=== PATIENT | male | born 1935 | race Caucasian/White ===

== ENCOUNTER 2017-04-05 11:07 | Inpatient (IN) | payer MEDICARE ==
[~2017-04-05] VITALS: Ht 180.3 cm; Wt 123.6 kg
[2017-04-05 11:50] LABS: BASOPHILS % (AUTO) 0.5 % (0.0-5.0); EOSINOPHILS % (AUTO) 0.5 % (0.0-8.0); HEMATOCRIT 42.8 % (42-54); LYMPHOCYTES % (AUTO) 6.5 % (21.0-51.0); MEAN CORPUSCULAR HEMOGLOBIN 30.8 pg (27.0-33.0); MEAN CORPUSCULAR HGB CONC 33.8 g/dL (32.0-36.0); MEAN CORPUSCULAR VOLUME 91.1 fL (79-99); MONOCYTES % (AUTO) 8.6 % (3.0-13.0); NEUTROPHILS % (AUTO) 83.9 % (40.0-77.0); PLATELET COUNT (AUTO) 183 K/uL (130-400); RED CELL DISTRIBUTION WIDTH 15.9 % (11.0-15.5); WHITE BLOOD COUNT (AUTO) 18.4 K/uL (4.8-10.8)
[2017-04-05 11:51] LABS: APPEARANCE,URINE Clear (CLEAR); BILIRUBIN,URINE Negative (NEGATIVE); COLOR,URINE Yellow (YELLOW); GLUCOSE, URINE (UA) Negative (NEGATIVE); KETONES,URINE Negative (NEGATIVE); LEUKOCYTE ESTERASE ,URINE Moderate (NEGATIVE); NITRATE,URINE Negative (NEGATIVE); OCCULT BLOOD,URINE Negative (NEGATIVE); PH,URINE 5.5 (5.0-8.0); PROTEIN,URINE Negative (NEGATIVE); UROBILINOGEN,URINE 0.2 mg/dL (0.2-1.0)
[2017-04-05 11:57] LABS: BACTERIA,URINE Rare /HPF (None Seen); SQUAMOUS EPITHELIAL CELL,UR Rare /LPF (0-2); WBC,URINE 0-1 /HPF (0-1)
[2017-04-05] MEDS ORDERED: ONDANSETRON HCL 4 MG/2 ML VIAL ONE (12:13)
[2017-04-05] MEDS ORDERED: FENTANYL CITRATE PF 50 MCG/1 ML 2ML VIAL ONE (12:14)
[2017-04-05] MEDS ORDERED: SODIUM CHLORIDE 0.9% 500ML 500 ML IV ONE (12:14)
[2017-04-05 12:21] LABS: CREATININE 1.3 mg/dL (0.5-1.5)
[2017-04-05 12:25] LABS: ALBUMIN 3.6 g/dL (3.5-5.0); BILIRUBIN,DIRECT 0.2 mg/dL (0.0-0.3)
[2017-04-05 18:35] VITALS: BP 146/77
[2017-04-05] MEDS ORDERED: ONDANSETRON HCL 4 MG/2 ML VIAL IVP PRN (18:45)
[2017-04-05] MEDS ORDERED: MORPHINE SULFATE 5 MG/ML VIAL IV PRN (18:45)
[2017-04-05] MEDS ORDERED: MORPHINE SULFATE 10 MG/ML 1ML VIAL IVP PRN (19:00)
[2017-04-05] MEDS: DEXTROSE 5 %-0.45 % NACL 1,000 ML IV SCH (19:53)
[2017-04-05] MEDS ORDERED: MORPHINE SULFATE 2 MG/ML 1ML SYG ONE (19:58)
[2017-04-05] MEDS ORDERED: HYDRALAZINE HCL 20 MG/ML VIAL IV PRN (21:15)
[2017-04-05] MEDS ORDERED: ZOLPIDEM TARTRATE 5 MG TAB PO PRN (21:15)
[2017-04-05] MEDS ORDERED: LACTULOSE 20 GM/30 ML UDCUP PO PRN (21:15)
[2017-04-05] MEDS ORDERED: ONDANSETRON HCL 4 MG/2 ML VIAL IV PRN (21:15)
[2017-04-05] MEDS ORDERED: ACETAMINOPHEN-CODEINE 300/30MG TAB PO PRN (21:15)
[2017-04-05] MEDS: MEROPENEM 1 GM VIAL IVP SCH (22:14)
[2017-04-05 23:52] VITALS: BP 137/71
[2017-04-06 04:00] VITALS: BP 125/70
[2017-04-06] MEDS ORDERED: ZOSYN 3.375GM+NS 50ML 50 ML IV SCH (05:00)
[2017-04-06 05:06] LABS: BASOPHILS % (AUTO) 0.4 % (0.0-5.0); EOSINOPHILS % (AUTO) 0.3 % (0.0-8.0); HEMATOCRIT 40.3 % (42-54); LYMPHOCYTES % (AUTO) 5.5 % (21.0-51.0); MEAN CORPUSCULAR HEMOGLOBIN 30.6 pg (27.0-33.0); MEAN CORPUSCULAR HGB CONC 33.2 g/dL (32.0-36.0); MEAN CORPUSCULAR VOLUME 92.2 fL (79-99); MONOCYTES % (AUTO) 8.5 % (3.0-13.0); NEUTROPHILS % (AUTO) 85.3 % (40.0-77.0); PLATELET COUNT (AUTO) 167 K/uL (130-400); RED BLOOD CELL COUNT(AUTO) 4.37 MIL/uL (4.50-6.20); WHITE BLOOD COUNT (AUTO) 22.6 K/uL (4.8-10.8)
[2017-04-06 05:25] LABS: ALBUMIN 2.9 g/dL (3.5-5.0); BILIRUBIN,TOTAL 1.2 mg/dL (0.2-1.0); CREATININE 1.2 mg/dL (0.5-1.5); POTASSIUM 3.8 mmol/L (3.5-5.1); TOTAL PROTEIN, SERUM 6.8 g/dL (6.0-8.3)
[2017-04-06 07:00] VITALS: BP 136/73
[2017-04-06] MEDS: FAMOTIDINE/PF 20 MG/2 ML VIAL IV SCH (09:21)
[2017-04-06] MEDS: DEXTROSE 5 %-0.45 % NACL 1,000 ML IV SCH (09:21)
[2017-04-06] MEDS: ENOXAPARIN SODIUM 40 MG/0.4 ML SYRINGE SQ SCH (09:22)
[2017-04-06] MEDS: MEROPENEM 1 GM VIAL IVP SCH ×2 (09:22→21:49)
[2017-04-06 10:05] LABS: INR 1.96 (0.85-1.15); PARTIAL THROMBOPLASTIN TIME 41.8 SEC (26.3-35.5); PROTHROMBIN TIME 20.3 SEC (9.6-11.6)
[2017-04-06 11:00] VITALS: BP 144/73
[2017-04-06] MEDS: FUROSEMIDE 10 MG/ML 2ML VIAL IV SCH (13:25)
[2017-04-06] MEDS: METOPROLOL TARTRATE 25 MG TAB PO SCH ×2 (13:25→21:49)
[2017-04-06 15:00] VITALS: BP 130/72
[2017-04-06] MEDS ORDERED: WARF5TAB76 PO (15:40)
[2017-04-06] MEDS ORDERED: SOTA80TA PO (15:40)
[2017-04-06] MEDS ORDERED: OMEP20CA10 PO (15:40)
[2017-04-06] MEDS ORDERED: TERA5CAP4 PO (15:40)
[2017-04-06] MEDS ORDERED: WARF2TAB57 PO (15:40)
[2017-04-06] MEDS ORDERED: LOSA1TAB37 PO (15:40)
[2017-04-06] MEDS ORDERED: ATOR20TA65 PO (15:40)
[2017-04-06] MEDS ORDERED: AMLO5TAB2 PO (15:40)
[2017-04-06] MEDS ORDERED: MAGN500C15 PO (15:40)
[2017-04-06] MEDS ORDERED: SPIR25TA4 PO (15:40)
[2017-04-06] MEDS ORDERED: ALLO300T2 PO (15:40)
[2017-04-06] MEDS ORDERED: CALC-866 PO (15:40)
[2017-04-06 20:00] VITALS: BP 142/80
[2017-04-07] VITALS (26 sets, daily range): BP systolic 121–160; BP diastolic 49–94
[2017-04-07] MEDS: FUROSEMIDE 10 MG/ML 2ML VIAL IV SCH ×3 (00:21→23:41)
[2017-04-07 05:59] LABS: MEAN CORPUSCULAR HEMOGLOBIN 30.5 pg (27.0-33.0); MEAN CORPUSCULAR HGB CONC 33.2 g/dL (32.0-36.0); MEAN CORPUSCULAR VOLUME 91.9 fL (79-99); PLATELET COUNT (AUTO) 189 K/uL (130-400); RED BLOOD CELL COUNT(AUTO) 4.24 MIL/uL (4.50-6.20); RED CELL DISTRIBUTION WIDTH 15.5 % (11.0-15.5); WHITE BLOOD COUNT (AUTO) 17.9 K/uL (4.8-10.8)
[2017-04-07 06:19] LABS: CREATININE 1.4 mg/dL (0.5-1.5); POTASSIUM 3.7 mmol/L (3.5-5.1)
[2017-04-07 06:25] LABS: B-TYPE NATRIURETIC PEPTIDE 76 pg/mL (0-100)
[2017-04-07 07:26] LABS: INR 1.42 (0.85-1.15); PROTHROMBIN TIME 14.8 SEC (9.6-11.6)
[2017-04-07] MEDS: ENOXAPARIN SODIUM 40 MG/0.4 ML SYRINGE SQ SCH (08:07)
[2017-04-07] MEDS: METOPROLOL TARTRATE 25 MG TAB PO SCH ×2 (08:30→20:13)
[2017-04-07] MEDS: FAMOTIDINE/PF 20 MG/2 ML VIAL IV SCH (08:30)
[2017-04-07] MEDS ORDERED: SODIUM CHLORIDE 0.9% 1000ML 0 ML IV ONE (09:15)
[2017-04-07] MEDS ORDERED: LACTATED RINGERS 1000ML 1,000 ML IV ONE (09:16)
[2017-04-07] MEDS: MEROPENEM 1 GM VIAL IVP SCH ×2 (10:11→21:53)
[2017-04-07] MEDS ORDERED: DEXAMETHASONE SOD PHOSPHATE 10MG/ML 1ML VIAL ONE (10:13)
[2017-04-07] MEDS ORDERED: ONDANSETRON HCL 4 MG/2 ML VIAL ONE (10:13)
[2017-04-07] MEDS ORDERED: PROPOFOL 10 MG/ML 20ML VIAL IV ONE (10:14)
[2017-04-07] MEDS ORDERED: MIDAZOLAM HCL 1 MG/ML 2ML VIAL ONE (10:14)
[2017-04-07] MEDS ORDERED: ROCURONIUM BROMIDE 10MG/1ML 5ML VL ONE (10:14)
[2017-04-07] MEDS ORDERED: GLYCOPYRROLATE 0.2 MG/ML 5 ML VIAL ONE (10:14)
[2017-04-07] MEDS ORDERED: LIDOCAINE PF 2% 5ML ABBOJECT ONE (10:14)
[2017-04-07] MEDS ORDERED: LIDOCAINE HCL MPF 1% 5ML VIAL ONE (10:14)
[2017-04-07] MEDS ORDERED: NEOSTIGMINE METHYLSULFATE 1MG/ML IV ONE (10:14)
[2017-04-07] MEDS ORDERED: FENTANYL CITRATE PF 50 MCG/1 ML 2ML VIAL ONE (10:15)
[2017-04-07] MEDS ORDERED: ACETAMINOPHEN-CODEINE 300/30MG TAB PO PRN (12:00)
[2017-04-07] MEDS ORDERED: IPRATROPIUM/ALBUTEROL SULFATE 3 ML SOLUTION IH ONE (12:28)
[2017-04-07] MEDS ORDERED: WARFARIN SODIUM 2 MG TAB PO SCH (17:00)
[2017-04-07] MEDS ORDERED: WARFARIN SODIUM 5 MG TAB PO SCH (17:00)
[2017-04-07] MEDS: LACTATED RINGERS 1000ML 1,000 ML IV SCH (20:14)
[2017-04-08] MEDS: ACETAMINOPHEN-CODEINE 300/30MG TAB PO PRN ×3 (02:16→22:08)
[2017-04-08 03:00] VITALS: BP 141/73
[2017-04-08 04:42] LABS: HEMATOCRIT 40.6 % (42-54); MEAN CORPUSCULAR HEMOGLOBIN 30.6 pg (27.0-33.0); MEAN CORPUSCULAR HGB CONC 33.3 g/dL (32.0-36.0); MEAN CORPUSCULAR VOLUME 91.9 fL (79-99); PLATELET COUNT (AUTO) 197 K/uL (130-400); RED BLOOD CELL COUNT(AUTO) 4.42 MIL/uL (4.50-6.20); RED CELL DISTRIBUTION WIDTH 15.5 % (11.0-15.5); WHITE BLOOD COUNT (AUTO) 14.6 K/uL (4.8-10.8)
[2017-04-08 04:48] LABS: INR 1.26 (0.85-1.15); PROTHROMBIN TIME 13.2 SEC (9.6-11.6)
[2017-04-08 04:57] LABS: ALBUMIN 2.7 g/dL (3.5-5.0); BILIRUBIN,TOTAL 0.8 mg/dL (0.2-1.0); CREATININE 1.4 mg/dL (0.5-1.5); POTASSIUM 3.6 mmol/L (3.5-5.1); TOTAL PROTEIN, SERUM 7.3 g/dL (6.0-8.3)
[2017-04-08 06:23] LABS: INR 1.27 (0.85-1.15); PROTHROMBIN TIME 13.3 SEC (9.6-11.6)
[2017-04-08 07:58] VITALS: BP 136/63
[2017-04-08] MEDS: METOPROLOL TARTRATE 25 MG TAB PO SCH (09:00)
[2017-04-08] MEDS: CHOLECALCIFEROL 5000 UNIT PO SCH (09:00)
[2017-04-08] MEDS: ENOXAPARIN SODIUM 40 MG/0.4 ML SYRINGE SQ SCH (09:00)
[2017-04-08] MEDS: ALLOPURINOL 300 MG TABLET PO SCH (10:17)
[2017-04-08] MEDS: FAMOTIDINE/PF 20 MG/2 ML VIAL IV SCH (10:17)
[2017-04-08] MEDS: LOSARTAN/HYDROCHLOROTHIAZIDE 50-12.5MG TABLET PO SCH (10:17)
[2017-04-08] MEDS: SOTALOL HCL 80 MG TABLET PO SCH ×2 (10:17→21:55)
[2017-04-08] MEDS: MEROPENEM 1 GM VIAL IVP SCH ×2 (10:18→21:56)
[2017-04-08] MEDS: FUROSEMIDE 10 MG/ML 2ML VIAL IV SCH (10:21)
[2017-04-08 11:19] VITALS: BP 120/79
[2017-04-08] MEDS: SPIRONOLACTONE 25 MG TAB PO SCH (13:58)
[2017-04-08 16:44] VITALS: BP 135/68
[2017-04-08] MEDS: WARFARIN SODIUM 5 MG TAB PO SCH (17:09)
[2017-04-08 20:00] VITALS: BP 115/63
[2017-04-08] MEDS: AMLODIPINE BESYLATE 5 MG TAB PO SCH (21:55)
[2017-04-08] MEDS: TERAZOSIN HCL 5 MG CAPSULE PO SCH (21:55)
[2017-04-08] MEDS: ATORVASTATIN CALCIUM 20 MG TABLET PO SCH (21:55)
[2017-04-08] MEDS: LACTATED RINGERS 1000ML 1,000 ML IV SCH (21:56)
[2017-04-09] VITALS: BP 143/83
[2017-04-09 04:00] VITALS: BP 105/52
[2017-04-09 05:03] LABS: HEMATOCRIT 35.7 % (42-54); MEAN CORPUSCULAR HEMOGLOBIN 31.4 pg (27.0-33.0); MEAN CORPUSCULAR HGB CONC 34.1 g/dL (32.0-36.0); MEAN CORPUSCULAR VOLUME 91.9 fL (79-99); PLATELET COUNT (AUTO) 175 K/uL (130-400); RED BLOOD CELL COUNT(AUTO) 3.88 MIL/uL (4.50-6.20); RED CELL DISTRIBUTION WIDTH 15.6 % (11.0-15.5); WHITE BLOOD COUNT (AUTO) 9.3 K/uL (4.8-10.8)
[2017-04-09 05:12] LABS: INR 1.28 (0.85-1.15); PROTHROMBIN TIME 13.4 SEC (9.6-11.6)
[2017-04-09 05:22] LABS: ALBUMIN 2.4 g/dL (3.5-5.0); BILIRUBIN,TOTAL 0.6 mg/dL (0.2-1.0); CREATININE 1.3 mg/dL (0.5-1.5); POTASSIUM 3.5 mmol/L (3.5-5.1); TOTAL PROTEIN, SERUM 6.5 g/dL (6.0-8.3)
[2017-04-09 05:51] LABS: BAND NEUTROPHILS % (MANUAL) 21 % (0-2); EOSINOPHILS % (MANUAL) 3 % (1-6); LYMPHOCYTES % (MANUAL) 25 % (22-44); MAN.DIFF COMMENT-IMPRESSION MANUAL DIFFERENTIAL; MONOCYTES % (MANUAL) 6 % (2-9); PLATELET MORPHOLOGY COMMENT ADEQUATE; SEGMENTED NEUTROPHILS % 45 % (40-70)
[2017-04-09 07:50] VITALS: BP 110/66
[2017-04-09] MEDS: CHOLECALCIFEROL 5000 UNIT PO SCH (09:00)
[2017-04-09] MEDS ORDERED: WARFARIN SODIUM 1 MG TAB PO SCH (09:45)
[2017-04-09] MEDS ORDERED: LIDOCAINE HCL-MPF 1% 2ML VIAL IVP PRN (10:00)
[2017-04-09] MEDS ORDERED: POTASSIUM CHLORIDE 20MEQ/100ML 100 ML IV PRN (10:00)
[2017-04-09] MEDS ORDERED: POTASSIUM CHLORIDE 10% ELIXIR 20 MEQ/15 ML UDCUP PO PRN (10:00)
[2017-04-09] MEDS: SOTALOL HCL 80 MG TABLET PO SCH ×2 (10:28→20:28)
[2017-04-09] MEDS: POTASSIUM CHLORIDE 20 MEQ ERTAB PO PRN ×2 (10:28→17:17)
[2017-04-09] MEDS: PANTOPRAZOLE SODIUM 40 MG TABLET.DR PO SCH (10:29)
[2017-04-09] MEDS: LOSARTAN/HYDROCHLOROTHIAZIDE 50-12.5MG TABLET PO SCH (10:29)
[2017-04-09] MEDS: MAGNESIUM OXIDE 400 MG TABLET PO SCH (10:29)
[2017-04-09] MEDS: FAMOTIDINE/PF 20 MG/2 ML VIAL IV SCH (10:29)
[2017-04-09] MEDS: ALLOPURINOL 300 MG TABLET PO SCH (10:29)
[2017-04-09] MEDS: MEROPENEM 1 GM VIAL IVP SCH ×2 (10:29→22:17)
[2017-04-09 11:13] VITALS: BP 111/83
[2017-04-09] MEDS: SPIRONOLACTONE 25 MG TAB PO SCH (15:25)
[2017-04-09] MEDS: ACETAMINOPHEN-CODEINE 300/30MG TAB PO PRN (15:28)
[2017-04-09 15:59] VITALS: BP 121/66
[2017-04-09] MEDS: WARFARIN SODIUM 5 MG TAB PO SCH (17:16)
[2017-04-09 20:25] VITALS: BP 112/72
[2017-04-09] MEDS: AMLODIPINE BESYLATE 5 MG TAB PO SCH (20:28)
[2017-04-09] MEDS: ATORVASTATIN CALCIUM 20 MG TABLET PO SCH (20:28)
[2017-04-09] MEDS: TERAZOSIN HCL 5 MG CAPSULE PO SCH (20:28)
[2017-04-09] MEDS: LACTATED RINGERS 1000ML 1,000 ML IV SCH (22:17)
[2017-04-10] VITALS: BP 124/50
[2017-04-10 04:00] VITALS: BP 120/64
[2017-04-10 05:18] LABS: INR 1.45 (0.85-1.15); PROTHROMBIN TIME 15.1 SEC (9.6-11.6)
[2017-04-10] MEDS: PANTOPRAZOLE SODIUM 40 MG TABLET.DR PO SCH (06:38)
[2017-04-10 07:30] VITALS: BP 107/62
[2017-04-10] MEDS: CHOLECALCIFEROL 5000 UNIT PO SCH (09:00)
[2017-04-10] MEDS: ALLOPURINOL 300 MG TABLET PO SCH (10:43)
[2017-04-10] MEDS: FAMOTIDINE/PF 20 MG/2 ML VIAL IV SCH (10:43)
[2017-04-10] MEDS: MAGNESIUM OXIDE 400 MG TABLET PO SCH (10:43)
[2017-04-10] MEDS: MEROPENEM 1 GM VIAL IVP SCH (10:43)
[2017-04-10] MEDS: LOSARTAN/HYDROCHLOROTHIAZIDE 50-12.5MG TABLET PO SCH (10:44)
[2017-04-10] MEDS: SOTALOL HCL 80 MG TABLET PO SCH (10:44)
[2017-04-10] MEDS: SPIRONOLACTONE 25 MG TAB PO SCH (10:44)
[2017-04-10 11:30] VITALS: BP 112/63
[2017-04-14] MEDS ORDERED: WARFARIN SODIUM 2 MG TAB PO SCH (09:00)
== END 2017-04-10 15:53 | disposition home or self-care (01) | DRG 853 ==
LOC: EDH 11:07 → EDHIP 15:35 → 4BH 18:24
PROVIDERS: ADMIT Family Medicine; ATTEND Family Medicine
PROC: 5A09357 Assistance with Respiratory Ventilation, Less than 24 Consecutive Hours, Continuous Positive Airway Pressure (ICD-10-PCS; 2017-04-07)
PROC: 0FT44ZZ Resection of Gallbladder, Percutaneous Endoscopic Approach (ICD-10-PCS; principal; 2017-04-07 10:10)
PROC: 5A09357 Assistance with Respiratory Ventilation, Less than 24 Consecutive Hours, Continuous Positive Airway Pressure (ICD-10-PCS; 2017-04-10)
DX: A41.9 Sepsis, unspecified organism (principal); I50.33 Acute on chronic diastolic (congestive) heart failure; I96 Gangrene, not elsewhere classified; K80.00 Calculus of gallbladder with acute cholecystitis without obstruction; I48.0 Paroxysmal atrial fibrillation; I34.0 Nonrheumatic mitral (valve) insufficiency; I11.0 Hypertensive heart disease with heart failure; I45.2 Bifascicular block; E66.01 Morbid (severe) obesity due to excess calories; E78.5 Hyperlipidemia, unspecified; G47.30 Sleep apnea, unspecified; I35.0 Nonrheumatic aortic (valve) stenosis; I35.1 Nonrheumatic aortic (valve) insufficiency; I45.10 Unspecified right bundle-branch block; J32.9 Chronic sinusitis, unspecified; K82.8 Other specified diseases of gallbladder; M10.9 Gout, unspecified; N40.0 Benign prostatic hyperplasia without lower urinary tract symptoms; R79.1 Abnormal coagulation profile; T45.515A Adverse effect of anticoagulants, initial encounter; I25.2 Old myocardial infarction; Z79.01 Long term (current) use of anticoagulants; Z79.899 Other long term (current) drug therapy; Z85.828 Personal history of other malignant neoplasm of skin; Z86.711 Personal history of pulmonary embolism; Z86.718 Personal history of other venous thrombosis and embolism; Z87.891 Personal history of nicotine dependence; Z95.3 Presence of xenogenic heart valve; Z68.38 Body mass index [BMI] 38.0-38.9, adult
CPT/HCPCS: 36415; 71045; 74176; 76705; 80048; 80053; 80076; 81001; 82550; 83605; 83690; 83880; 84484; 85025; 85027; 85610; 85730; 87040; 88304; 93005; 94640; 94660; A4218; J1100; J1650; J1940; J2001; J2185; J2250; J2405; J2704; J2710; J3010; J3490; J7030; J7040; J7042; J7120

== ENCOUNTER 2018-01-28 13:05 | Emergency (ER) | payer MEDICARE ==
[~2018-01-28 13:05] MED LIST: ALLO300T2 PO; AMLO5TAB7 PO; ATOR20TA65 PO; CALC-866 PO; LOSA1TAB37 PO; MAGN500C15 PO; OMEP20CA10 PO; SOTA80TA PO; SPIR25TA6 PO; TERA5CAP4 PO; WARF2TAB57 PO; WARF5TAB76 PO
[2018-01-28 13:51] LABS: BASOPHILS % (AUTO) 0.8 % (0.0-5.0); EOSINOPHILS % (AUTO) 1.3 % (0.0-8.0); HEMATOCRIT 44.1 % (42-54); LYMPHOCYTES % (AUTO) 17.2 % (21.0-51.0); MEAN CORPUSCULAR HEMOGLOBIN 31.6 pg (27.0-33.0); MEAN CORPUSCULAR HGB CONC 33.3 g/dL (32.0-36.0); MEAN CORPUSCULAR VOLUME 94.9 fL (79-99); MONOCYTES % (AUTO) 5.9 % (3.0-13.0); NEUTROPHILS % (AUTO) 74.8 % (40.0-77.0); PLATELET COUNT (AUTO) 194 K/uL (130-400); RED BLOOD CELL COUNT(AUTO) 4.64 MIL/uL (4.50-6.20); RED CELL DISTRIBUTION WIDTH 15.3 % (11.0-15.5); WHITE BLOOD COUNT (AUTO) 9.6 K/uL (4.8-10.8)
== END 2018-01-28 15:33 | disposition home or self-care (01) ==
LOC: EDH 13:05
DX: L03.116 Cellulitis of left lower limb (principal); I10 Essential (primary) hypertension; E78.5 Hyperlipidemia, unspecified; K21.9 Gastro-esophageal reflux disease without esophagitis; D68.318 Other hemorrhagic disorder due to intrinsic circulating anticoagulants, antibodies, or inhibitors
CPT/HCPCS: 36415; 85025; 93971